=== PATIENT | male | born 1965 | race Caucasian/White ===

== ENCOUNTER 2023-09-10 14:37 | Outpatient (CLI) | payer MEDICAID ==
[~2023-09-10 14:37] MED LIST: ALBU6.7H14 INH; BECL8.7A7 INH; GLIP5TAB23 PO; HYDR12.5 PO; LEVO100T PO; LISI5TAB22 PO; METF500T PO
== END 2023-09-10 23:59 | disposition home or self-care (01) ==
LOC: RAD 14:37
PROVIDERS: ATTEND Nurse Practitioner
DX: M47.812 Spondylosis without myelopathy or radiculopathy, cervical region (principal); M48.02 Spinal stenosis, cervical region; R20.0 Anesthesia of skin
CPT/HCPCS: 72050